=== PATIENT | male | born 1995 | race Caucasian/White ===

== ENCOUNTER 2021-04-24 22:06 | Emergency (ER) | payer OTHER ==
[~2021-04-24] VITALS: Ht 172.7 cm; Wt 75.0 kg
[2021-04-24 23:06] VITALS: BP 131/69
[2021-04-24] MEDS ORDERED: OLANZapine 5 MG TABLET PO ONE (23:15)
== END 2021-04-25 00:57 | disposition home or self-care (01) ==
LOC: EMS 22:09
DX: F32.9 Major depressive disorder, single episode, unspecified (principal)
CPT/HCPCS: 99283; 99284

== ENCOUNTER 2021-04-25 09:59 | Emergency (ER) | payer OTHER ==
[~2021-04-25] VITALS: Ht 167.6 cm; Wt 81.8 kg
[2021-04-25 10:02] VITALS: BP 132/86
[2021-04-25 13:53] LABS: BASOPHILS % (AUTO) 0.6 % (0.0-2.0); EOSINOPHILS % (AUTO) 1.7 % (1.0-6.0); HEMATOCRIT 46.3 % (41-53); HEMOGLOBIN 15.6 g/dL (13.5-17.5); LYMPHOCYTES # (AUTO) 2.3 K/uL (1.0-4.8); LYMPHOCYTES % (AUTO) 31.7 % (22.0-44.0); MEAN CORPUSCULAR HEMOGLOBIN 29.1 pg (26.0-34.0); MEAN CORPUSCULAR HGB CONC 33.7 G/dL (31.0-37.0); MEAN CORPUSCULAR VOLUME 86 fL (80-100); MONOCYTES # (AUTO) 0.7 K/uL (0.1-1.0); MONOCYTES % (AUTO) 10.2 % (2.0-9.0); NEUTROPHILS # (AUTO) 4.1 K/uL (1.8-7.7); NEUTROPHILS % (AUTO) 55.8 % (40.0-70.0); PLATELET COUNT (AUTO) 208 K/uL (150-450); RED BLOOD CELL COUNT(AUTO) 5.35 MIL/uL (4.50-5.90); RED CELL DISTRIBUTION WIDTH 13.6 % (11.5-14.5)
[2021-04-25] MEDS ORDERED: LORazepam 2 MG TABLET PO ONE (14:00)
[2021-04-25] MEDS ORDERED: HALOPERIDOL 5 MG TABLET PO ONE (14:00)
[2021-04-25 14:16] LABS: ANION GAP 13 mmol/L (8-16); CALCIUM, TOTAL 8.5 mg/dL (8.8-10.5); CARBON DIOXIDE 24 mmol/L (22-29); CHLORIDE 102 mmol/L (98-107); CREATININE 0.75 mg/dL (0.60-1.30); GLOMERULAR FILTR. RATE CALC > 60 mL/min (>60); GLUCOSE,RANDOM 109 mg/dL (70-110); POTASSIUM 4.2 mmol/L (3.5-5.1); SODIUM SERUM 139 mmol/L (136-145); UREA NITROGEN, BLOOD 12 mg/dL (7-18)
[2021-04-25 14:22] LABS: ALANINE AMINOTRANSFERASE 74 U/L (12-78); ALKALINE PHOSPHATASE 140 U/L (46-116); ASPARTATE AMINOTRANSFERASE 49 U/L (15-37); BILIRUBIN,TOTAL 0.8 mg/dL (0.1-1.0); TOTAL PROTEIN, SERUM 8.1 g/dL (6.4-8.2)
== END 2021-04-25 14:35 | disposition left against medical advice (07) ==
LOC: EMS 09:59
DX: U07.1 COVID-19 (principal); R45.1 Restlessness and agitation; F17.210 Nicotine dependence, cigarettes, uncomplicated
CPT/HCPCS: 36415; 71045; 80053; 85025; 99284; G0480

== ENCOUNTER 2021-04-25 15:01 | Emergency (ER) | payer OTHER ==
[~2021-04-25] VITALS: Ht 172.7 cm; Wt 74.1 kg
[2021-04-25 15:08] VITALS: BP 128/74
== END 2021-04-25 15:16 | disposition home or self-care (01) ==
LOC: EMS 15:02
DX: U07.1 COVID-19 (principal); R45.1 Restlessness and agitation; F17.210 Nicotine dependence, cigarettes, uncomplicated
CPT/HCPCS: 99283; Z7502

== ENCOUNTER 2022-05-13 00:28 | Inpatient (IN) | payer MEDICAID, OTHER ==
[~2022-05-13] VITALS: Ht 170.2 cm; Wt 79.6 kg
[2022-05-13 01:41] LABS: BASOPHILS % (AUTO) 0.5 % (0.0-2.0); EOSINOPHILS % (AUTO) 1.7 % (1.0-6.0); HEMATOCRIT 43.2 % (41-53); HEMOGLOBIN 14.3 g/dL (13.5-17.5); LYMPHOCYTES # (AUTO) 1.8 K/uL (1.0-4.8); LYMPHOCYTES % (AUTO) 21.2 % (22.0-44.0); MEAN CORPUSCULAR HEMOGLOBIN 28.9 pg (26.0-34.0); MEAN CORPUSCULAR HGB CONC 33.1 G/dL (31.0-37.0); MEAN CORPUSCULAR VOLUME 87 fL (80-100); MONOCYTES # (AUTO) 0.9 K/uL (0.1-1.0); MONOCYTES % (AUTO) 9.9 % (2.0-9.0); NEUTROPHILS # (AUTO) 5.8 K/uL (1.8-7.7); NEUTROPHILS % (AUTO) 66.7 % (40.0-70.0); PLATELET COUNT (AUTO) 232 K/uL (150-450); RED BLOOD CELL COUNT(AUTO) 4.96 MIL/uL (4.50-5.90); RED CELL DISTRIBUTION WIDTH 14.1 % (11.5-14.5)
[2022-05-13] MEDS ORDERED: HALOPERIDOL 5 MG TABLET PO PRN (01:45)
[2022-05-13] MEDS ORDERED: LORazepam 2 MG TABLET PO PRN (01:45)
[2022-05-13 01:49] LABS: ANION GAP 7 mmol/L (8-16); CARBON DIOXIDE 29 mmol/L (22-29); CHLORIDE 101 mmol/L (98-107); CREATININE 0.91 mg/dL (0.60-1.30); GLUCOSE,RANDOM 78 mg/dL (70-110); POTASSIUM 3.7 mmol/L (3.5-5.1); SODIUM SERUM 137 mmol/L (136-145); UREA NITROGEN, BLOOD 18 mg/dL (7-18)
[2022-05-13 01:50] LABS: GLOMERULAR FILTR. RATE CALC > 60 mL/min (>60)
[2022-05-13 01:55] LABS: ALANINE AMINOTRANSFERASE 56 U/L (12-78); ALBUMIN 4.4 g/dL (3.4-5.0); ALKALINE PHOSPHATASE 108 U/L (46-116); ASPARTATE AMINOTRANSFERASE 54 U/L (15-37); BILIRUBIN,TOTAL 1.8 mg/dL (0.1-1.0); TOTAL PROTEIN, SERUM 8.6 g/dL (6.4-8.2)
[2022-05-13 04:06] LABS: COVID AG,FIA SOURCE NASAL SWAB
[2022-05-13 05:13] VITALS: BP 114/66
[2022-05-13 08:30] VITALS: BP 98/60
[2022-05-13] MEDS ORDERED: DOCUSATE SODIUM 100 MG CAPSULE PO PRN (09:00)
[2022-05-13] MEDS ORDERED: ALBUTEROL SULFATE HFA 90 MCG/PUFF 8 GM INHALER IH PRN (09:00)
[2022-05-13] MEDS ORDERED: MAG HYDROX/AL HYDROX/SIMETH ES 30 ML SUSPENSION UDCUP PO PRN (09:00)
[2022-05-13] MEDS ORDERED: ACETAMINOPHEN 325 MG TABLET PO PRN (09:00)
[2022-05-13] MEDS ORDERED: PETROLATUM,WHITE 28 GM JELLY TP PRN (09:00)
[2022-05-13] MEDS ORDERED: ONDANSETRON HCL 4 MG TABLET PO PRN (09:00)
[2022-05-13] MEDS ORDERED: CloNIDine HCL 0.1 MG TABLET PO PRN (09:00)
[2022-05-13] MEDS ORDERED: IBUPROFEN 600 MG TABLET PO PRN (09:00)
[2022-05-13] MEDS ORDERED: BENZOCAINE/MENTHOL LOZENGE PO PRN (09:00)
[2022-05-13] MEDS ORDERED: OMEPRAZOLE 20 MG CAPSULE PO PRN (09:00)
[2022-05-13] MEDS ORDERED: BACITRACIN 28 GM OINTMENT TP PRN (09:00)
[2022-05-13] MEDS ORDERED: MAGNESIUM HYDROXIDE SUSPENSION 30 ML UDCUP PO PRN (09:00)
[2022-05-13] MEDS ORDERED: LOPERAMIDE HCL 2 MG CAPSULE PO PRN (09:00)
[2022-05-13 16:00] VITALS: BP 112/57
[2022-05-13] MEDS: OLANZapine 10 MG TABLET PO SCH (20:15)
[2022-05-13] MEDS: DIVALPROEX SODIUM 500 MG DR TABLET PO SCH (20:15)
[2022-05-13] MEDS: ZOLPIDEM TARTRATE 10 MG TABLET PO PRN (21:27)
[2022-05-14] MEDS: DIVALPROEX SODIUM 500 MG DR TABLET PO SCH ×2 (09:08→20:19)
[2022-05-14 18:27] VITALS: BP 102/69
[2022-05-14] MEDS: OLANZapine 10 MG TABLET PO SCH (20:19)
[2022-05-14] MEDS: ZOLPIDEM TARTRATE 10 MG TABLET PO PRN (22:03)
[2022-05-15] MEDS: DIVALPROEX SODIUM 500 MG DR TABLET PO SCH ×2 (09:39→20:43)
[2022-05-15 10:56] VITALS: BP 87/62
[2022-05-15 16:39] VITALS: BP 131/76
[2022-05-15] MEDS: OLANZapine 10 MG TABLET PO SCH (20:43)
[2022-05-16 08:59] VITALS: BP 116/64
[2022-05-16] MEDS: DIVALPROEX SODIUM 500 MG DR TABLET PO SCH ×2 (09:32→20:43)
[2022-05-16 16:00] VITALS: BP 100/59
[2022-05-16] MEDS: OLANZapine 10 MG TABLET PO SCH (20:43)
[2022-05-16] MEDS: ZOLPIDEM TARTRATE 10 MG TABLET PO PRN (23:39)
[2022-05-17] MEDS: DIVALPROEX SODIUM 500 MG DR TABLET PO SCH (09:11)
[2022-05-17] MEDS ORDERED: DIVA-112 PO (15:39)
[2022-05-17] MEDS ORDERED: OLAN10 PO (15:39)
== END 2022-05-17 16:45 | disposition home or self-care (01) | DRG 750 ==
LOC: EMS 00:29 → 3EI 02:00
PROVIDERS: ADMIT Psychiatry & Neurology Psychiatry; ATTEND Psychiatry & Neurology Psychiatry
DX: F25.9 Schizoaffective disorder, unspecified (principal); F41.9 Anxiety disorder, unspecified; G47.00 Insomnia, unspecified; K59.00 Constipation, unspecified; Z20.822 Contact with and (suspected) exposure to COVID-19
CPT/HCPCS: 80053; 80164; 85025; 99285; G0480

== ENCOUNTER 2024-04-10 03:27 | Inpatient (IN) | payer MEDICAID, OTHER ==
[~2024-04-10] VITALS: Ht 177.8 cm; Wt 90.1 kg
[~2024-04-10 03:27] MED LIST: DIVA-112 PO; OLAN10 PO
[2024-04-10 05:00] LABS: BASOPHILS % (AUTO) 0.6 % (0.0-2.0); HEMOGLOBIN 14.2 g/dL (13.5-17.5); LYMPHOCYTES # (AUTO) 2.4 K/uL (1.0-4.8); LYMPHOCYTES % (AUTO) 20.3 % (22.0-44.0); MEAN CORPUSCULAR HEMOGLOBIN 29.8 pg (26.0-34.0); MEAN CORPUSCULAR HGB CONC 33.8 G/dL (31.0-37.0); MEAN CORPUSCULAR VOLUME 88 fL (80-100); MONOCYTES # (AUTO) 1.2 K/uL (0.1-1.0); MONOCYTES % (AUTO) 10.2 % (2.0-9.0); NEUTROPHILS # (AUTO) 7.7 K/uL (1.8-7.7); NEUTROPHILS % (AUTO) 66.9 % (40.0-70.0); PLATELET COUNT (AUTO) 210 K/uL (150-450); RED BLOOD CELL COUNT(AUTO) 4.78 MIL/uL (4.50-5.90); RED CELL DISTRIBUTION WIDTH 13.5 % (11.5-14.5); WHITE BLOOD COUNT (AUTO) 11.6 K/uL (4.5-11.0)
[2024-04-10 05:02] LABS: COVID AG,FIA SOURCE NASAL SWAB
[2024-04-10 05:19] LABS: ALCOHOL, BLOOD (SERUM) 32 mg/dL (0-10)
[2024-04-10] MEDS: HALOPERIDOL 5 MG TABLET PO ONE (05:19)
[2024-04-10] MEDS: DiphenhydrAMINE HCL 25 MG CAPSULE PO ONE (05:19)
[2024-04-10] MEDS: LORazepam 2 MG TABLET PO ONE (05:19)
[2024-04-10 05:22] LABS: SARS-COV2 (COVID) ANTIGEN,FIA Negative (Negative)
[2024-04-10 05:37] LABS: ANION GAP 11 mmol/L (8-16); CALCIUM, TOTAL 8.1 mg/dL (8.8-10.5); CARBON DIOXIDE 26 mmol/L (22-29); CHLORIDE 102 mmol/L (98-107); CREATININE 0.82 mg/dL (0.60-1.30); GLOMERULAR FILTR. RATE CALC > 60 mL/min (>60); GLUCOSE,RANDOM 84 mg/dL (70-110); SODIUM SERUM 139 mmol/L (136-145); UREA NITROGEN, BLOOD 8 mg/dL (7-18)
[2024-04-10 05:41] LABS: POTASSIUM 2.9 mmol/L (3.5-5.1)
[2024-04-10] MEDS: POTASSIUM CHLORIDE 20 MEQ ER TABLET PO ONE ×2 (05:48→20:13)
[2024-04-10 06:20] LABS: PH,URINE DRUG SCREEN 5.5 (5.0-8.0)
[2024-04-10 06:27] LABS: ALCOHOL, URINE DRUG SCREEN POSITIVE (NEGATIVE); AMPHET/METH SCREEN,URINE POSITIVE (NEGATIVE); BARBITURATE SCREEN, URINE NEGATIVE (NEGATIVE); BENZODIAZEPINES SCREEN,URINE NEGATIVE (NEGATIVE); CANNABINOID SCREEN,URINE NEGATIVE (NEGATIVE); COCAINE SCREEN,URINE NEGATIVE (NEGATIVE); METHADONE SCREEN, URINE NEGATIVE (NEGATIVE); OPIATE SCREEN,URINE NEGATIVE (NEGATIVE); PHENCYCLIDINE SCREEN,URINE NEGATIVE (NEGATIVE)
[2024-04-10] MEDS ORDERED: PROMETHAZINE HCL 25 MG TABLET PO PRN (08:45)
[2024-04-10] MEDS ORDERED: LOPERAMIDE HCL 2 MG CAPSULE PO PRN (08:45)
[2024-04-10] MEDS ORDERED: MAGNESIUM HYDROXIDE SUSPENSION 30 ML UDCUP PO PRN (08:45)
[2024-04-10] MEDS ORDERED: ACETAMINOPHEN 325 MG TABLET PO PRN (08:45)
[2024-04-10] MEDS ORDERED: MAG HYDROX/ALUMINUM HYD/SIMETH ES 30 ML SUSPENSION UDCUP PO PRN (08:45)
[2024-04-10] MEDS ORDERED: TUBERCULIN, PURIFIED PROTEIN DERIVATIVE 5 TU/0.1 ML SYRINGE ID ONE (08:45)
[2024-04-10] MEDS ORDERED: GuaiFENesin/D-METHORPHAN [SUGAR-FREE] 200-20MG/10 ML SYRUP UDCUP PO PRN (08:45)
[2024-04-10] MEDS ORDERED: MELATONIN 5 MG TABLET PO PRN (08:45)
[2024-04-10] MEDS ORDERED: HydrOXYzine PAMOATE 50 MG CAPSULE PO PRN (08:45)
[2024-04-10] MEDS: FOLIC ACID 1 MG TABLET PO SCH (09:39)
[2024-04-10] MEDS: MULTIVITAMINS WITH MINERALS, THERAPEUTIC TABLET PO SCH (09:39)
[2024-04-10] MEDS: NALTREXONE HCL 50 MG TABLET PO SCH (09:39)
[2024-04-10] MEDS: THIAMINE 100 MG TABLET PO SCH (09:39)
[2024-04-10] MEDS ORDERED: CloNIDine HCL 0.1 MG TABLET PO PRN (19:45)
[2024-04-10] MEDS: DIVALPROEX SODIUM 500 MG ER TABLET PO SCH (20:12)
[2024-04-10] MEDS: ZOLPIDEM TARTRATE 10 MG TABLET PO PRN (20:13)
[2024-04-10] MEDS: OLANZapine 5 MG RAPDIS TABLET PO SCH (20:13)
[2024-04-10] MEDS: LORazepam 2 MG TABLET PO PRN (20:13)
[2024-04-10] MEDS ORDERED: POTASSIUM CHLORIDE 20 MEQ ER TABLET PO ONE (20:30)
[2024-04-10 21:15] VITALS: BP 138/86; PULSE 83; RESP 18; TEMP 98; O2SAT 98
[2024-04-10] MEDS ORDERED: INFLUENZA VIRUS VACCINE TVS (6MO+) 2024-25/PF 45 MCG/0.5 ML SYRINGE IM. ONE (22:15)
[2024-04-11 08:43] VITALS: BP 108/66; PULSE 82; RESP 17; TEMP 98.3; O2SAT 98
[2024-04-11] MEDS ORDERED: PALIPERIDONE PALMITATE 234 MG/1.5 ML SYRINGE IM ONE (09:00)
[2024-04-11 20:54] VITALS: BP 110/60; PULSE 79; RESP 16; TEMP 97.9; O2SAT 98
[2024-04-12] MEDS: OLANZapine 5 MG RAPDIS TABLET PO PRN (08:07)
[2024-04-12 13:23] VITALS: RESP 18
[2024-04-12 14:23] VITALS: BP 126/69; PULSE 79; RESP 16; TEMP 97.7; O2SAT 97
[2024-04-12 14:43] VITALS: BP 132/86; PULSE 81; RESP 18; TEMP 97.8; O2SAT 99
[2024-04-12] MEDS ORDERED: LORazepam 2 MG TABLET PO PRN (14:45)
[2024-04-12 15:52] VITALS: BP 136/82; PULSE 93; RESP 18; TEMP 97.7; O2SAT 98
[2024-04-12 20:46] VITALS: BP 111/62; PULSE 74; RESP 17; TEMP 97.1; O2SAT 98
[2024-04-13] MEDS ORDERED: LORazepam 2 MG TABLET PO PRN (07:00)
[2024-04-13] MEDS: LORazepam 2 MG TABLET PO SCH (09:16)
[2024-04-13 09:41] VITALS: BP 107/64; PULSE 68; RESP 18; TEMP 98.1; O2SAT 96
[2024-04-13] MEDS ORDERED: MELA5TAB40 PO (14:23)
[2024-04-13] MEDS ORDERED: OLAN5TAB94 PO (14:23)
[2024-04-13] MEDS ORDERED: DIVA-153 PO (14:23)
[2024-04-13] MEDS ORDERED: NALT50TA33 PO (14:23)
[2024-04-13] MEDS: CALCIUM [CALCIUM CARB 1250MG] 500 MG TABLET PO SCH (17:07)
[2024-04-15] MEDS ORDERED: LORazepam 1 MG TABLET PO PRN (07:00)
[2024-04-15] MEDS ORDERED: LORazepam 1 MG TABLET PO SCH (09:00)
[2024-04-15] MEDS ORDERED: PALIPERIDONE PALMITATE 156 MG/ML SYRINGE IM ONE (09:00)
[2024-04-16] MEDS ORDERED: LORazepam 1 MG TABLET PO PRN (07:00)
== END 2024-04-13 18:22 | disposition home or self-care (01) | DRG 750 ==
LOC: EMS 03:30 → B3A 17:40
PROVIDERS: ADMIT Psychiatry & Neurology Psychiatry; ATTEND Psychiatry & Neurology Psychiatry
PROC: GZHZZZZ Group Psychotherapy (ICD-10-PCS; principal; 2024-04-11)
PROC: GZ58ZZZ Individual Psychotherapy, Cognitive-Behavioral (ICD-10-PCS; 2024-04-11)
DX: F25.9 Schizoaffective disorder, unspecified (principal); R45.851 Suicidal ideations; F15.10 Other stimulant abuse, uncomplicated; F10.20 Alcohol dependence, uncomplicated; Y90.2 Blood alcohol level of 40-59 mg/100 ml; Z20.822 Contact with and (suspected) exposure to COVID-19; Z87.891 Personal history of nicotine dependence; Z91.199 Patient's noncompliance with other medical treatment and regimen due to unspecified reason; Z55.9 Problems related to education and literacy, unspecified; Z59.9 Problem related to housing and economic circumstances, unspecified; Z63.9 Problem related to primary support group, unspecified; Z65.3 Problems related to other legal circumstances
CPT/HCPCS: 80048; 80307; 84132; 85025; 99285; G0480

== ENCOUNTER 2024-09-28 18:15 | Inpatient (IN) | payer MEDICAID, OTHER ==
[~2024-09-28] VITALS: Ht 170.2 cm; Wt 74.5 kg
[~2024-09-28 18:15] MED LIST changes: -DIVA-112 PO; +DIVA-153 PO; +MELA5TAB40 PO; +NALT50TA33 PO; -OLAN10 PO; +OLAN5TAB94 PO
[2024-09-28 18:37] LABS: EOSINOPHILS % (AUTO) 2.2 % (1.0-6.0); HEMATOCRIT 46.3 % (41-53); HEMOGLOBIN 15.2 g/dL (13.5-17.5); LYMPHOCYTES # (AUTO) 3.6 K/uL (1.0-4.8); LYMPHOCYTES % (AUTO) 29.8 % (22.0-44.0); MEAN CORPUSCULAR HEMOGLOBIN 28.5 pg (26.0-34.0); MEAN CORPUSCULAR HGB CONC 32.8 G/dL (31.0-37.0); MEAN CORPUSCULAR VOLUME 87 fL (80-100); MONOCYTES % (AUTO) 8.1 % (2.0-9.0); NEUTROPHILS % (AUTO) 58.9 % (40.0-70.0); PLATELET COUNT (AUTO) 238 K/uL (150-450); RED BLOOD CELL COUNT(AUTO) 5.33 MIL/uL (4.50-5.90); RED CELL DISTRIBUTION WIDTH 14.1 % (11.5-14.5); WHITE BLOOD COUNT (AUTO) 11.9 K/uL (4.5-11.0)
[2024-09-28 18:46] LABS: ANION GAP 8 mmol/L (8-16); CALCIUM, TOTAL 8.9 mg/dL (8.8-10.5); CARBON DIOXIDE 28 mmol/L (22-29); CHLORIDE 102 mmol/L (98-107); GLOMERULAR FILTR. RATE CALC > 60 mL/min (>60); GLUCOSE,RANDOM 79 mg/dL (70-110); POTASSIUM 3.1 mmol/L (3.5-5.1); SODIUM SERUM 138 mmol/L (136-145); UREA NITROGEN, BLOOD 12 mg/dL (7-18)
[2024-09-28 18:57] LABS: COVID AG,FIA SOURCE NASAL SWAB
[2024-09-28 19:21] LABS: SARS-COV2 (COVID) ANTIGEN,FIA Negative (Negative)
[2024-09-28] MEDS: DiphenhydrAMINE HCL 25 MG CAPSULE PO ONE (19:50)
[2024-09-28] MEDS: LORazepam 2 MG TABLET PO ONE (19:50)
[2024-09-28] MEDS: haloperidoL 5 MG TABLET PO ONE (19:50)
[2024-09-28] MEDS: POTASSIUM CHLORIDE 20 MEQ ER TABLET PO ONE (19:51)
[2024-09-29 02:14] VITALS: O2SAT 98
[2024-09-29 03:37] VITALS: BP 115/83; PULSE 66; RESP 18; TEMP 97; O2SAT 99
[2024-09-29] MEDS ORDERED: MAG HYDROX/ALUMINUM HYD/SIMETH ES 30 ML SUSPENSION UDCUP PO PRN (07:15)
[2024-09-29] MEDS ORDERED: OMEPRAZOLE 20 MG CAPSULE PO PRN (07:15)
[2024-09-29] MEDS ORDERED: CloNIDine HCL 0.1 MG TABLET PO PRN (07:15)
[2024-09-29] MEDS ORDERED: ALBUTEROL SULFATE HFA 90 MCG/PUFF 8 GM INHALER IH PRN (07:15)
[2024-09-29] MEDS ORDERED: LOPERAMIDE HCL 2 MG CAPSULE PO PRN (07:15)
[2024-09-29] MEDS ORDERED: IBUPROFEN 600 MG TABLET PO PRN (07:15)
[2024-09-29] MEDS ORDERED: DOCUSATE SODIUM 100 MG CAPSULE PO PRN (07:15)
[2024-09-29] MEDS ORDERED: PETROLATUM,WHITE 28 GM JELLY TP PRN (07:15)
[2024-09-29] MEDS ORDERED: BACITRACIN 28 GM OINTMENT TP PRN (07:15)
[2024-09-29] MEDS ORDERED: ONDANSETRON 4 MG TABLET PO PRN (07:15)
[2024-09-29] MEDS ORDERED: MAGNESIUM HYDROXIDE SUSPENSION 30 ML UDCUP PO PRN (07:15)
[2024-09-29] MEDS ORDERED: BENZOCAINE/MENTHOL [CEPACOL] LOZENGE PO PRN (07:15)
[2024-09-29] MEDS ORDERED: ACETAMINOPHEN 325 MG TABLET PO PRN (07:15)
[2024-09-29 08:23] VITALS: BP 113/82; PULSE 96; RESP 18; TEMP 97.5; O2SAT 100
[2024-09-29 09:50] LABS: HEMOGLOBIN A1C 5.3 % (3.8-5.6)
[2024-09-29 09:51] LABS: BASOPHILS % (AUTO) 0.5 % (0.0-2.0); EOSINOPHILS % (AUTO) 3.6 % (1.0-6.0); HEMATOCRIT 44.5 % (41-53); HEMOGLOBIN 14.6 g/dL (13.5-17.5); LYMPHOCYTES # (AUTO) 2.2 K/uL (1.0-4.8); LYMPHOCYTES % (AUTO) 26.8 % (22.0-44.0); MEAN CORPUSCULAR HEMOGLOBIN 28.7 pg (26.0-34.0); MEAN CORPUSCULAR HGB CONC 32.8 G/dL (31.0-37.0); MEAN CORPUSCULAR VOLUME 88 fL (80-100); MONOCYTES # (AUTO) 0.8 K/uL (0.1-1.0); MONOCYTES % (AUTO) 9.4 % (2.0-9.0); NEUTROPHILS # (AUTO) 4.9 K/uL (1.8-7.7); NEUTROPHILS % (AUTO) 59.7 % (40.0-70.0); PLATELET COUNT (AUTO) 181 K/uL (150-450); RED BLOOD CELL COUNT(AUTO) 5.09 MIL/uL (4.50-5.90); RED CELL DISTRIBUTION WIDTH 14.5 % (11.5-14.5); WHITE BLOOD COUNT (AUTO) 8.3 K/uL (4.5-11.0)
[2024-09-29 10:15] LABS: ALANINE AMINOTRANSFERASE 29 U/L (12-78); ALBUMIN 3.4 g/dL (3.4-5.0); ALKALINE PHOSPHATASE 114 U/L (46-116); ANION GAP 5 mmol/L (8-16); ASPARTATE AMINOTRANSFERASE 23 U/L (15-37); BILIRUBIN,TOTAL 1.8 mg/dL (0.1-1.0); CALCIUM, TOTAL 8.5 mg/dL (8.8-10.5); CARBON DIOXIDE 32 mmol/L (22-29); CHLORIDE 104 mmol/L (98-107); CHOL/HDL RATIO 2.6 (4.2-7.3); CHOLESTEROL 106 mg/dL (131-200); GLOMERULAR FILTR. RATE CALC > 60 mL/min (>60); GLUCOSE,RANDOM 80 mg/dL (70-110); HDL CHOLESTEROL 41 mg/dL (40-60); LDL CHOL (CALC.) 47 mg/dL (0-130); POTASSIUM 3.7 mmol/L (3.5-5.1); SODIUM SERUM 141 mmol/L (136-145); THYROID STIMULATING HORMONE 0.98 uIU/mL (0.36-3.74); TOTAL PROTEIN, SERUM 6.7 g/dL (6.4-8.2); TRIGLYCERIDES 91 mg/dL (15-150); UREA NITROGEN, BLOOD 11 mg/dL (7-18)
[2024-09-29 20:24] VITALS: BP 112/64; PULSE 77; RESP 17; TEMP 97.8; O2SAT 98
[2024-09-29] MEDS: OLANZapine 5 MG RAPDIS TABLET PO SCH (21:56)
[2024-09-29] MEDS: DIVALPROEX SODIUM 500 MG DR TABLET PO SCH (21:56)
[2024-09-30 08:48] VITALS: BP 118/84; PULSE 89; RESP 18; TEMP 97.5; O2SAT 95
[2024-09-30] MEDS: LORazepam 2 MG TABLET PO PRN (18:43)
[2024-09-30 20:19] VITALS: BP 104/70; PULSE 80; RESP 18; TEMP 97.5; O2SAT 99
[2024-10-01 08:37] VITALS: BP 108/61; PULSE 64; RESP 17; TEMP 97.9; O2SAT 99
[2024-10-02 17:13] VITALS: BP 110/64; PULSE 73; RESP 16; TEMP 98.5; O2SAT 100
[2024-10-02 20:49] VITALS: RESP 16
[2024-10-02] MEDS: ZOLPIDEM TARTRATE 10 MG TABLET PO PRN (22:50)
[2024-10-03] MEDS: haloperidoL 5 MG TABLET PO PRN (01:26)
[2024-10-03 08:51] VITALS: BP 100/63; PULSE 68; RESP 16; TEMP 97.4; O2SAT 100
[2024-10-03 20:38] VITALS: BP 106/76; PULSE 90; RESP 16; TEMP 97.6; O2SAT 97
[2024-10-04] MEDS: MELATONIN 5 MG TABLET PO PRN (00:12)
[2024-10-04 08:56] VITALS: BP 102/63; PULSE 73; RESP 17; TEMP 97.1; O2SAT 98
[2024-10-04] MEDS: NICOTINE 21 MG/24 HOUR PATCH TD SCH (15:51)
== END 2024-10-04 17:42 | disposition left against medical advice (07) | DRG 750 ==
LOC: EMS 18:15 → B3A 09-29 01:59 → UNDOADMIN 09-29 02:07
PROVIDERS: ADMIT Psychiatry & Neurology Psychiatry; ATTEND Psychiatry & Neurology Psychiatry
PROC: GZHZZZZ Group Psychotherapy (ICD-10-PCS; principal; 2024-09-29)
PROC: GZ52ZZZ Individual Psychotherapy, Cognitive (ICD-10-PCS; 2024-09-29)
DX: F20.0 Paranoid schizophrenia (principal); F10.10 Alcohol abuse, uncomplicated; F12.10 Cannabis abuse, uncomplicated; F32.A Depression, unspecified; K59.00 Constipation, unspecified; Z20.822 Contact with and (suspected) exposure to COVID-19; Y90.3 Blood alcohol level of 60-79 mg/100 ml; G47.00 Insomnia, unspecified; Z53.29 Procedure and treatment not carried out because of patient's decision for other reasons; F41.9 Anxiety disorder, unspecified; Z72.0 Tobacco use; Z79.899 Other long term (current) drug therapy
CPT/HCPCS: 80048; 80053; 80061; 83036; 84436; 84443; 85025; 99285; G0480